=== PATIENT | male | born 1955 | race Hispanic/Latino ===

== ENCOUNTER 2017-09-13 16:19 | Emergency (ER) | payer MEDICAID ==
[2017-09-13 16:28] VITALS: BP 117/74; PULSE 77; RESP 20; TEMP 97.4; O2SAT 97
[2017-09-13] MEDS ORDERED: Acetaminophen-Codeine 300/30 mg Tab PO STA (17:18)
[2017-09-13] MEDS ORDERED: Acetaminophen-Codeine 300/30 mg Tab PO ONE (17:36)
--- NOTE | 2017-09-13 18:28 | C.PDOC ---
History Of Present Illness 62 year old male presents to the ED for evaluation of atraumatic left thumb thenar eminence and wrist pain. Patient was evaluated in ED for similar symptoms 1 month ago, underwent XR and was discharged. Patient has not followed up as he was instructed. Patient presents to the ED for further evaluation and requests MRI. He denies trauma/injury to the area and states he is right hand dominant. Time Seen by Provider: 09/13/17 16:47 Chief Complaint (Nursing): Upper Extremity Problem/Injury History Per: Patient History/Exam Limitations: no limitations Onset/Duration Of Symptoms: Days Current Symptoms Are (Timing): Still Present Quality: "Pain" Additional History Per: Patient Past Medical History Reviewed: Historical Data, Nursing Documentation, Vital Signs Vital Signs: Last Vital Signs Temp 97.4 F L 09/13/17 16:27 Pulse 77 09/13/17 16:27 Resp 20 09/13/17 16:27 BP 117/74 09/13/17 16:27 Pulse Ox 97 09/13/17 18:33 - Medical History PMH: Gastritis, HTN Surgical History: No Surg Hx - [facility] Procedures APPLICATION OF SPLINT (04/09/02) CLOSURE SKIN & SUBCUTANEOUS NEC (10/09/04) CYSTOSCOPY NEC (05/15/07) INJECT ANTIBIOTIC (04/07/03) INJECT/INFUSE NEC (06/12/07) REMOV URETERAL DRAIN (05/15/07) URETERAL CATHETERIZATION (04/08/07) URETEROSCOPY (04/08/07) Family History: States: Unknown Family Hx - Social History Hx Alcohol Use: No Hx Substance Use: No - Immunization History Hx Tetanus Toxoid Vaccination: No Hx Influenza Vaccination: No Hx Pneumococcal Vaccination: No Review Of Systems Musculoskeletal: Positive for: Other (left thenar eminence and wrist pain ) Physical Exam - Physical Exam Appears: Non-toxic, No Acute Distress Skin: Normal Color, Warm, Dry Extremity: Normal ROM, Tenderness (to left thenar eminence), Capillary Refill ( less than 2 seconds ), No Swelling, Other (positive alvin sign) Neurological/Psych: Oriented x3, Normal Speech, Normal Cognition, Normal Sensation Gait: Steady ED Course And Treatment O2 Sat by Pulse Oximetry: 97 (on RA) Pulse Ox Interpretation: Normal Medical Decision Making Medical Decision Making: Progress: Motrin PO and Tylenol/Codeine PO administered. Left hand XR ordered and reviewed. Patient eloped from the ED. Disposition - Disposition Disposition: ELOPEMENT - ER ONLY Disposition Time: 17:45 Condition: STABLE Forms: [facility] (Belgian) - Clinical Impression Clinical Impression: Tenosynovitis of hand - Scribe Statement The provider has reviewed the documentation as recorded by the Scribe (Sweetie Camargo) Provider Attestation: All medical record entries made by the Scribe were at my direction and personally dictated by me. I have reviewed the chart and agree that the record accurately reflects my personal performance of the history, physical exam, medical decision making, and the department course for this patient. I have also personally directed, reviewed, and agree with the discharge instructions and disposition.
== END 2017-09-13 18:28 | disposition left against medical advice (07) ==
LOC: C.ER 16:19
DX: M65.9 Synovitis and tenosynovitis, unspecified (principal); I10 Essential (primary) hypertension

== ENCOUNTER 2017-10-07 04:27 | Emergency (ER) | payer MEDICAID ==
[2017-10-07 04:48] VITALS: BP 109/67; PULSE 88; RESP 18; TEMP 98; O2SAT 97
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
== END 2017-10-07 05:15 | disposition home or self-care (01) ==
LOC: C.ER 04:27
DX: G89.29 Other chronic pain (principal); M54.9 Dorsalgia, unspecified; M54.2 Cervicalgia; I10 Essential (primary) hypertension
CPT/HCPCS: 96372; 99283; J1885

== ENCOUNTER 2017-11-21 02:25 | Emergency (ER) | payer MEDICAID ==
[2017-11-21 02:29] VITALS: BP 143/84; PULSE 92; RESP 18; TEMP 98.2; O2SAT 99
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
== END 2017-11-21 03:58 | disposition home or self-care (01) ==
LOC: C.ER 02:25
DX: G89.29 Other chronic pain (principal); M54.9 Dorsalgia, unspecified; M54.2 Cervicalgia; M54.30 Sciatica, unspecified side
CPT/HCPCS: 96372; 99283; J1885

== ENCOUNTER 2018-04-30 16:39 | Emergency (ER) | payer MEDICAID ==
[2018-04-30 17:09] VITALS: BMI 25.7
[2018-04-30 17:13] VITALS: BP 100/60; PULSE 72; RESP 18; TEMP 98; O2SAT 98
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
--- NOTE | 2018-05-01 07:00 | RAD ---
PROCEDURE: Right Hand Radiographs. HISTORY: 5th digit injury COMPARISON: None. FINDINGS: BONES: There is a tiny radiodensity seen in the dorsal soft tissues at the distal segment middle phalanx right small finger level appears unclear whether this represents a small chip or avulsion fracture or retained radiodense foreign body. There is no dislocation or large fracture through the right small digit nevertheless. Soft tissues otherwise appear unremarkable. The remaining digits throughout the right hand appear unremarkable swells the metacarpal bones. JOINTS: Limited degenerative joint space narrowing and articular cortical sclerosis appreciate throughout the distal interphalangeal joints diffusely. SOFT TISSUES: Normal. OTHER FINDINGS: None. IMPRESSION: Possible tiny chip avulsion fracture fragment or retained radiodense foreign body lies in the dorsal soft tissues of the right small finger middle phalanx level. No additional potential posttraumatic changes. Limited degenerative changes distal interphalangeal joints diffusely.
== END 2018-04-30 18:41 | disposition home or self-care (01) ==
LOC: C.ER 16:39
DX: M20.011 Mallet finger of right finger(s) (principal)
CPT/HCPCS: 29130; 73130; 96372; 99285; J1885

== ENCOUNTER 2018-07-12 00:21 | Emergency (ER) | payer MEDICAID ==
[2018-07-12 00:22] VITALS: BMI 25.7
[2018-07-12 00:44] LABS: BASO # 0.1 K/uL (0.0-0.2); BASO % 1.1 % (0.0-2.0); EOS # 0.5 K/uL (0.0-0.7); EOS % 4.8 % (0.0-4.0); HEMOGLOBIN 16.1 g/dL (12.0-18.0); LYMPH % 28.1 % (20.0-40.0); MEAN CELL VOLUME 89.1 fL (80.0-94.0); MEAN CORPUSCULAR HEMOGLOBIN 30.2 pg (27.0-31.0); MEAN CORPUSCULAR HGB CONC 33.9 g/dL (33.0-37.0); MEAN PLATELET VOLUME 7.2 fL (7.2-11.7); MONO % 9.9 % (0.0-10.0); NEUT # 5.9 K/uL (1.8-7.0); NEUT % 56.1 % (50.0-75.0); NRBC % 0.1 % (0.0-2.0); RBC 5.33 Mil/uL (4.40-5.90); RED CELL DISTRIBUTION WIDTH 14.5 % (11.5-14.5); WHITE BLOOD COUNT 10.6 K/uL (4.8-10.8)
[2018-07-12 00:59] LABS: ALB/GLOB RATIO 1.4 (1.0-2.1); ALBUMIN 3.9 g/dL (3.5-5.0); ALT/SGPT 43 U/L (21-72); AST/SGOT 18 U/L (17-59); BLOOD UREA NITROGEN 19 mg/dL (9-20); CALCIUM 9.6 mg/dl (8.6-10.4); GFR NON-AFRICAN AMERICAN > 60
[2018-07-12 01:45] VITALS: RESP 18
[2018-07-12 04:42] VITALS: BP 122/63; PULSE 77; TEMP 98.2; O2SAT 97
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
--- NOTE | 2018-07-12 08:08 | RAD ---
Date of service: 07/12/2018 HISTORY: chest pain COMPARISON: No prior. FINDINGS: LUNGS: Mild venous congestion. Mild patchy increased markings at the lung bases. PLEURA: No significant pleural effusion identified, no pneumothorax apparent. CARDIOVASCULAR: No atherosclerotic calcification present. Tortuous aorta. Normal. OSSEOUS STRUCTURES: No significant abnormalities. VISUALIZED UPPER ABDOMEN: Normal. OTHER FINDINGS: None. IMPRESSION: Mild venous congestion. Mild patchy increased markings at the lung bases.
--- NOTE | 2018-07-13 06:35 | CARD ---
APPROVED REPORT Date of service: 07/12/2018 EKG Measurement Heart [id number] <Conclusion> Normal sinus rhythm Left axis deviation ST & T wave abnormality, consider lateral ischemia Abnormal ECG
== END 2018-07-12 06:09 | disposition home or self-care (01) ==
LOC: C.ER 00:21
DX: R07.89 Other chest pain (principal); I10 Essential (primary) hypertension; E78.00 Pure hypercholesterolemia, unspecified; Z95.5 Presence of coronary angioplasty implant and graft; F17.210 Nicotine dependence, cigarettes, uncomplicated

== ENCOUNTER 2018-12-16 10:07 | Outpatient (CLI) | payer MEDICAID | END 2018-12-16 10:08 | disposition home or self-care (01) | LOC: C.CARD 10:07 ==

== ENCOUNTER 2019-01-02 20:24 | Observation (INO) | payer MEDICAID ==
[2019-01-02 20:24] VITALS: BMI 25.7
[2019-01-02] MEDS ORDERED: Aspirin 325 mg EC Tablets PO STA (21:16)
[2019-01-02 21:40] LABS: BASO # 0.1 K/uL (0.0-0.2); BASO % 0.8 % (0.0-2.0); EOS # 0.4 K/uL (0.0-0.7); EOS % 4.5 % (0.0-4.0); HEMOGLOBIN 16.1 g/dL (12.0-18.0); LYMPH # 2.6 K/uL (1.0-4.3); MEAN CELL VOLUME 92.4 fL (80.0-94.0); MEAN CORPUSCULAR HEMOGLOBIN 31.8 pg (27.0-31.0); MEAN CORPUSCULAR HGB CONC 34.4 g/dL (33.0-37.0); MEAN PLATELET VOLUME 7.1 fL (7.2-11.7); MONO # 0.6 K/uL (0.0-0.8); NEUT # 4.7 K/uL (1.8-7.0); NEUT % 56.7 % (50.0-75.0); RBC 5.06 Mil/uL (4.40-5.90); RED CELL DISTRIBUTION WIDTH 13.1 % (11.5-14.5); WHITE BLOOD COUNT 8.4 K/uL (4.8-10.8)
[2019-01-02 21:52] LABS: ALB/GLOB RATIO 1.7 (1.0-2.1); ALBUMIN 4.1 g/dL (3.5-5.0); ALT/SGPT 22 U/L (21-72); AST/SGOT 17 U/L (17-59); BLOOD UREA NITROGEN 15 mg/dL (9-20); CALCIUM 9.5 mg/dl (8.6-10.4); GFR NON-AFRICAN AMERICAN > 60; INR 1.1; PROTHROMBIN TIME 12.2 SECONDS (9.7-12.2)
[2019-01-02] MEDS ORDERED: Aspirin 325 mg EC Tablets PO ONE (21:54)
[2019-01-02 22:05] LABS: B-TYPE NATRIURETIC PEPTIDE 320 pg/mL (0-900)
--- NOTE | 2019-01-02 23:03 | C.PDOC ---
History Of Present Illness 63 year old male presents with neck discomfort raising from his chest associated with nausea. Patient reports this is the anginal equivalent to when he had prior heart attack with same symptoms. He had echocardiogram on 11/2018 which showed ejection fraction of 22-23% and known ischemic cardiomyopathy. Time Seen by Provider: 01/02/19 21:06 Chief Complaint (Nursing): Abdominal Pain History Per: Patient History/Exam Limitations: no limitations Onset/Duration Of Symptoms: Hrs Current Symptoms Are (Timing): Still Present Associated Symptoms: Nausea Modifying Factors: None Exacerbating Factors: None Alleviating Factors: None Recent travel outside of the [place]: No Past Medical History Reviewed: Historical Data, Nursing Documentation, Vital Signs Vital Signs: Last Vital Signs Temp 98 F 01/02/19 20:46 Pulse 62 01/02/19 20:46 Resp 16 01/02/19 20:46 BP 108/72 01/02/19 20:46 Pulse Ox 99 01/02/19 20:46 - Medical History PMH: Fractures (NECK), Gastritis, HTN, Hypercholesterolemia Denies: Chronic Kidney Disease Surgical History: Coronary Stent (5x) - [facility] Procedures APPLICATION OF SPLINT (04/09/02) CLOSURE SKIN & SUBCUTANEOUS NEC (10/09/04) CYSTOSCOPY NEC (05/15/07) INJECT ANTIBIOTIC (04/07/03) INJECT/INFUSE NEC (06/12/07) REMOV URETERAL DRAIN (05/15/07) URETERAL CATHETERIZATION (04/08/07) URETEROSCOPY (04/08/07) Family History: States: Unknown Family Hx - Social History Hx Alcohol Use: No Hx Substance Use: No - Immunization History Hx Tetanus Toxoid Vaccination: No Hx Influenza Vaccination: No Hx Pneumococcal Vaccination: No Review Of Systems Constitutional: Negative for: Fever, Chills Cardiovascular: Positive for: Chest Pain. Negative for: Palpitations Respiratory: Negative for: Cough, Shortness of Breath Gastrointestinal: Positive for: Nausea Musculoskeletal: Positive for: Back Pain Neurological: Negative for: Weakness, Numbness Physical Exam - Physical Exam Appears: Non-toxic, Other (tall thin white male) Skin: Normal Color, Warm Head: Atraumatic, Normacephalic Oral Mucosa: Moist Neck: Normal, Supple Chest: Symmetrical, No Tenderness Cardiovascular: Rhythm Regular Respiratory: Normal Breath Sounds, No Rales, No Rhonchi, No Wheezing Gastrointestinal/Abdominal: Soft, No Tenderness Neurological/Psych: Oriented x3, Normal Speech ED Course And Treatment - Laboratory Results Result Diagrams: 01/02/19 21:36 01/02/19 21:36 Lab Results: PT 12.2 SECONDS (9.7-12.2) 01/02/19 21:36 INR 1.1 01/02/19 21:36 APTT 32 SECONDS (21-34) 01/02/19 21:36 Troponin I < 0.0120 ng/mL (0.00-0.120) 01/02/19 21:36 NT-Pro-B Natriuret Pep 320 pg/mL (0-900) 01/02/19 21:36 Total Bilirubin 0.6 mg/dL (0.2-1.3) 01/02/19 21:36 AST 17 U/L (17-59) 01/02/19 21:36 ALT 22 U/L (21-72) 01/02/19 21:36 Alkaline Phosphatase 66 U/L (38-126) 01/02/19 21:36 Total Protein 6.5 g/dL (6.3-8.3) 01/02/19 21:36 Albumin 4.1 g/dL (3.5-5.0) 01/02/19 21:36 Globulin 2.4 gm/dL (2.2-3.9) 01/02/19 21:36 Albumin/Globulin Ratio 1.7 (1.0-2.1) 01/02/19 21:36 Lab Interpretation: Normal ECG: Interpreted By [place] ECG Rhythm: Sinus Rhythm, ST/T Changes (flat T^'s inferior leads) ECG Interpretation: Normal O2 Sat by Pulse Oximetry: 99 Pulse Ox Interpretation: Normal - Radiology CXR: Interpreted by [place] CXR Interpretation: Yes: No Acute Disease, Heart Size Reevaluation Time: 23:01 Reassessment Condition: Unchanged - Physician Consult Information Outcome Of Conversation: 2300: d/w Dr. Weeks- Medicine Weight Loss Counselor, ok to admit. Medical Decision Making Medical Decision Making: anginal equivalent of neck discomfort and nausea neg w/u severe cardiomyopathy, Echo 12/10 22% EJF Disposition Doctor Will See Patient In The: Hospital Counseled Patient/Family Regarding: Studies Performed, Diagnosis - Disposition Disposition: HOSPITALIZED Disposition Time: 23:03 Condition: GOOD - Clinical Impression Clinical Impression: Angina at rest - Scribe Statement The provider has reviewed the documentation as recorded by the Scribe Yvan Prado All medical record entries made by the Scribe were at my direction and personally dictated by me. I have reviewed the chart and agree that the record accurately reflects my personal performance of the history, physical exam, medical decision making, and the department course for this patient. I have also personally directed, reviewed, and agree with the discharge instructions and disposition.
[2019-01-02] MEDS ORDERED: Enoxaparin 40 mg Syringe SC STA (23:04)
[2019-01-02] MEDS ORDERED: Albuterol HFA 90 mcg/actuation (8 g) IH PRN (23:27)
[2019-01-03 00:08] VITALS: RESP 20
[2019-01-03 05:20] LABS: CK-MB 0.78 ng/mL (0.0-3.38)
--- NOTE | 2019-01-03 09:01 | CP.PCM.PN ---
Subjective - Date & Time of Evaluation Date of Evaluation: 01/03/19 Time of Evaluation: 08:55 - Subjective Subjective: PGY-[address] Starkey's service: Pt seen and examined at bedside. Nursing reports no acute events overnight. Patient states the pain in his neck associated with chest pain that brought him to ED yesterday has "completely gone away." Patient states he is not getting SOB walking to bathroom. Complains of chronic muscular lower back pain aggravated by "horrible hospital bed." Tolerating diet; voiding without difficulty. Objective - Vital Signs/Intake and Output Vital Signs (last 24 hours): Temp Pulse Resp BP Pulse Ox 97.7 F 58 L 20 97/60 L 96 01/03/19 04:34 01/03/19 07:30 01/03/19 04:34 01/03/19 04:34 01/03/19 04:34 - Medications Medications: Current Medications Albuterol (Ventolin Hfa 90 Mcg/Actuation (8 G)) 2 puff IH QID PRN PRN Reason: Wheezing Aspirin (Aspirin) 325 mg PO DAILY [facility] Carvedilol (Coreg) 6.25 mg PO BID [facility] Enoxaparin Sodium (Lovenox) 40 mg SC DAILY [facility] Home Med (Atorvastatin) 1 tab PO DAILY [facility] Home Med (Metoprolol) 1 tab PO DAILY [facility] Pneumococcal Polyvalent Vaccine (Pneumovax 23 Vaccine) 0.5 ml IM .ONCE ONE Stop: 01/04/19 14:01 - Labs Labs: 01/02/19 21:36 01/02/19 21:36 PT 12.2 SECONDS (9.7-12.2) 01/02/19 21:36 INR 1.1 01/02/19 21:36 APTT 32 SECONDS (21-34) 01/02/19 21:36 - Constitutional Appears: Non-toxic, No Acute Distress - Head Exam Head Exam: ATRAUMATIC, NORMAL INSPECTION - Eye Exam Eye Exam: EOMI. absent: Scleral icterus Pupil Exam: PERRL - ENT Exam ENT Exam: Mucous Membranes Moist - Neck Exam Neck Exam: Full ROM, Tenderness - Respiratory Exam Respiratory Exam: Clear to Ausculation Bilateral, NORMAL BREATHING PATTERN - Cardiovascular Exam Cardiovascular Exam: REGULAR RHYTHM, +S1, +S2 - GI/Abdominal Exam GI & Abdominal Exam: Soft, Normal Bowel Sounds. absent: Tenderness - Extremities Exam Extremities Exam: Normal Inspection. absent: Pedal Edema - Back Exam Back Exam: absent: CVA tenderness (L), CVA tenderness (R) - Neurological Exam Neurological Exam: Alert, Awake, Oriented x3 - Psychiatric Exam Psychiatric exam: Normal Affect, Normal Mood - Skin Skin Exam: Normal Color, Warm Assessment and Plan - Assessment and Plan (Free Text) Plan: Chest pain, R/o ACS Hx of Ischemic cardiomyopathy HFrEF HX of CABG (5x stent) Observe on telemetry HEART score: 4 pts (moderate score; Risk of MACE 12-16%) Troponin negative x 3; BNP 320 EKG (01/03/19): Sinus becky @ 58 bpm; Incomplete RBBB CXR (01/02/19): NAD; Cardiomegaly; mild venous congestion; tortuous aorta; degenerative changes in spine ECHO (11/2018): 22 EF%; T chol 112; LDL 73; HDL 30 ASCVD risk 17.7% Dr. Holden/Tea; Cardio consult - help appreciated - f/u reccs ASA 325mg PO Daily Coreg 6.25 mg PO BID Enalapril 5mg PO Daily Plavix 75mg PO Daily Crestor 40mg PO HS -Lovenox 80mg SC given in ED once IGT A1c: 6.2 Stressed importance of diet/exercise Hyperlipidemia Crestor 40mg PO HS T chol 112; LDL 73; HDL 30 ASCVD risk 17.7% PPX Lovenox 40mg SC daily; Plavix 75mg PO Daily; ASA 325mg PO Daily GI not currently indicated SCDs Dispo: Stable for discharge. Must f/u with [facility] and cardio within one week. Consideration for AICD moving forward. Ralph Dacosta PGY-3 Management per Lalito
--- NOTE | 2019-01-03 09:06 | RAD ---
Chest x-ray single frontal view HISTORY: Shortness of breath. COMPARISON: 07/12/2018 FINDINGS: Mild venous congestion. Tortuous aorta. Mild cardiomegaly. Degenerative changes in the spine. Small nodular density at the left lung base may represent confluence of shadows with ribs and vessels. IMPRESSION: Mild venous congestion. Tortuous aorta. Mild cardiomegaly. Degenerative changes in the spine. Small nodular density at the left lung base may represent confluence of shadows with ribs and vessels.
[2019-01-03] MEDS ORDERED: ATORVASTATIN PO SCH (10:00)
[2019-01-03] MEDS ORDERED: Enoxaparin 40 mg Syringe SC SCH (10:00)
[2019-01-03] MEDS ORDERED: METOPROLOL PO SCH ×2 (10:00)
[2019-01-03 11:27] LABS: HDL CHOLESTEROL 30 mg/dL (30-70)
[2019-01-03 11:36] LABS: CK-MB 0.75 ng/mL (0.0-3.38)
[2019-01-03 11:38] LABS: LDL CHOLESTEROL 73 mg/dL (0-129)
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
[2019-01-03] MEDS ORDERED: Lidocaine 5% Patch TD SCH (14:15)
--- NOTE | 2019-01-03 17:14 | PCM.HF ---
Heart Failure Core Measure - Heart Failure Ejection Fraction: Less Than 40 % TAMMY Inhibitor Prescribed: Yes Beta-Tariq Prescribed: Carvedilol Angiotensin II Receptor Tariq Prescribed: No Contraindication/Reason for not providing: on tammy AnticoagulationTherapy for Atrial Fibrillation/Atrialflutter: No Contraindication/Reason for not providing: no hx of a fib Aldosterone Antagonist Prescribed: No Hydralazine Nitrate Prescribed: Yes
[2019-01-03 18:34] VITALS: BP 120/71; PULSE 81
[2019-01-03 18:57] VITALS: TEMP 98.8; O2SAT 99
[2019-01-04] MEDS ORDERED: Pneumococcal 23-Valent Vaccine IM ONE (14:00)
--- NOTE | 2019-01-05 17:16 | HP ---
HISTORY OF PRESENT ILLNESS: A 63-year-old male with history of coronary artery disease, heart failure, admitted to the hospital with chief complaint of chest pain, shortness of breath. The patient came to the ER for admission. PHYSICAL EXAMINATION: GENERAL: The patient is awake, alert, oriented. VITAL SIGNS: Temperature 98, pulse 92. HEENT: Within normal limits. NECK: Supple. CHEST: Symmetrical. HEART: Regular. ABDOMEN: Soft. EXTREMITIES: No edema. ASSESSMENT AND PLAN: The patient suffers from unstable angina. The patient is to get bedrest, supportive care. Cardiology consult. Abdon Starkey MD
== END 2019-01-03 20:05 | disposition home or self-care (01) ==
LOC: C.ER 20:24 → C.6T 22:58
PROVIDERS: ADMIT Internal Medicine Pulmonary Disease; ATTEND Internal Medicine Pulmonary Disease
DX: I25.110 Atherosclerotic heart disease of native coronary artery with unstable angina pectoris (principal); I11.0 Hypertensive heart disease with heart failure; E78.00 Pure hypercholesterolemia, unspecified; I25.2 Old myocardial infarction; I50.9 Heart failure, unspecified; Z87.891 Personal history of nicotine dependence; Z95.5 Presence of coronary angioplasty implant and graft
CPT/HCPCS: 36415; 71045; 80053; 80061; 83036; 83880; 84443; 84484; 85025; 85610; 85730; 96372; 96374; 99285; G0378; J1650; J2405

== ENCOUNTER 2019-01-19 13:44 | Emergency (ER) | payer MEDICAID ==
[2019-01-19 13:45] VITALS: BMI 25.7
[2019-01-19 13:52] VITALS: PULSE 69
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
[2019-01-19 15:09] LABS: BASO # 0.1 K/uL (0.0-0.2); BASO % 0.5 % (0.0-2.0); EOS # 0.2 K/uL (0.0-0.7); EOS % 1.7 % (0.0-4.0); HEMOGLOBIN 16.2 g/dL (12.0-18.0); LYMPH % 14.8 % (20.0-40.0); MEAN CELL VOLUME 92.8 fL (80.0-94.0); MEAN CORPUSCULAR HEMOGLOBIN 32.7 pg (27.0-31.0); MEAN CORPUSCULAR HGB CONC 35.3 g/dL (33.0-37.0); MEAN PLATELET VOLUME 7.1 fL (7.2-11.7); MONO # 0.7 K/uL (0.0-0.8); MONO % 5.3 % (0.0-10.0); NEUT # 10.7 K/uL (1.8-7.0); NEUT % 77.7 % (50.0-75.0); RBC 4.95 Mil/uL (4.40-5.90); RED CELL DISTRIBUTION WIDTH 13.2 % (11.5-14.5); WHITE BLOOD COUNT 13.8 K/uL (4.8-10.8)
[2019-01-19 15:28] LABS: ALB/GLOB RATIO 1.6 (1.0-2.1); ALT/SGPT 25 U/L (21-72); AST/SGOT 24 U/L (17-59); BLOOD UREA NITROGEN 14 mg/dL (9-20); CALCIUM 9.1 mg/dl (8.6-10.4); GFR NON-AFRICAN AMERICAN > 60
[2019-01-19 15:36] LABS: CK-MB 0.56 ng/mL (0.0-3.38)
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
[2019-01-19 16:32] VITALS: BP 116/73; RESP 18; TEMP 98
[2019-01-19 16:38] VITALS: O2SAT 99
--- NOTE | 2019-01-20 12:14 | CARD ---
APPROVED REPORT Date of service: 01/19/2019 EKG Measurement Heart [id number] <Conclusion> Normal sinus rhythm Incomplete right bundle branch block Left anterior fascicular block Septal infarct, age undetermined ST & T wave abnormality, consider lateral ischemia Abnormal ECG
== END 2019-01-19 16:43 | disposition home or self-care (01) ==
LOC: C.ER 13:44
DX: M54.5 Low back pain (principal); S80.211A Abrasion, right knee, initial encounter; Y09 Assault by unspecified means